=== PATIENT | male | born 1980 | race Caucasian/White ===

== ENCOUNTER 2021-03-22 09:31 | Outpatient (CLI) | payer OTHER, SELFPAY ==
--- NOTE | 2021-03-22 09:37 | XR_ITS ---
WS: [id number] FOOT RIGHT TECHNIQUE: 2 views of the right foot CLINICAL INFORMATION: Rt 4th toe pain COMPARISON: None. FINDINGS: Right fourth metatarsals are normal in appearance. Tiny transverse lucency through the distal phalanx suspicious for tiny nondisplaced fracture. No evidence of callus formation. Correlation with area of pain. No other visualized fractures. XR/XR foot RT 2V [id number] IMPRESSION: Tiny transverse lucency through the fourth distal phalanx suspicious for tiny n ondisplaced fracture. No evidence of callus formation.
== END 2021-03-22 09:32 | disposition home or self-care (01) ==
PROVIDERS: Visit Provider Family Medicine Adult Medicine
DX: M79.674 Pain in right toe(s) (principal)
CPT/HCPCS: 73620

== ENCOUNTER 2021-04-09 11:57 | Outpatient (CLI) | payer OTHER, SELFPAY ==
[2021-04-09 12:40] VITALS: BP 106/57; PULSE 63; RESP 18; TEMP 36.7; O2SAT 94; BMI 25.8
[2021-04-09 14:40] VITALS: BP 90/54; PULSE 60; RESP 16; TEMP 36.8; O2SAT 92
== END 2021-04-09 11:58 | disposition home or self-care (01) ==
LOC: OPS 11:59
PROVIDERS: PCP Family Medicine; Visit Provider Nurse Practitioner Family
DX: U07.1 COVID-19 (principal)
CPT/HCPCS: 96365

== ENCOUNTER 2021-08-28 14:19 | Outpatient (CLI) | payer OTHER, SELFPAY ==
--- NOTE | 2021-08-28 14:25 | USCV_ITS ---
Gerson Zimmer Age: 41 Gender: M : 1980 Exam Date: 08/28/2021 14:49 Ordering Phys: Marky Ellis MD Technologist: Robin Kirkpatrick Exam Location: [facility] [place] Indication: dyspnea post covid BP: 112 / 70 HR: 73 Rhythm: Sinus Technical Quality: Adequate MEASUREMENTS (Male / Female) Normal Values 2D ECHO LV Diastolic Diameter PLAX 3.3 cm 4.2 - 5.9 / 3.9 - 5.3 cm LV Systolic Diameter PLAX 2.1 cm IVS Diastolic Thickness 1.3 cm 0.6 - 1.0 / 0.6 - 0.9 cm IVS Systolic Thickness 1.7 cm LVPW Diastolic Thickness 1.5 cm 0.6 - 1.0 / 0.6 - 0.9 cm LVPW Systolic Thickness 1.6 cm LVOT Diameter 2.0 cm LV Ejection Fraction 2D Teich 66.8 % LV Ejection Fraction MOD 2C 68.9 % LV Ejection Fraction 2C AL 68.8 % LA Diameter 3.1 cm LA Width 3.4 cm LA Height 4.6 cm RA Width 3.4 cm RA Height 4.8 cm Aorta at Sinotubular Diameter 2.5 cm M-MODE Aortic Annulus Diameter 2.8 cm LA Ao Ratio MM 1.1 MV E Point Septal Separation 0.4 cm DOPPLER AV Peak Velocity 146.0 cm/s LVOT Peak Velocity 133.0 cm/s AV Area Cont Eq vti 2.8 cm squared AV Area Cont Eq pk 3.0 cm squared MV Area PHT 4.0 cm squared Mitral E to A Ratio 1.3 MV E' Velocity 66.6 cm/s Mitral E to MV E' Ratio 6.3 Mitral E to LV E' Lateral Ratio 5.2 Mitral E to LV E' Septal Ratio 7.9 TR Peak Velocity 287.3 cm/s TR Peak Gradient 33.0 mmHg TR Mean Velocity 226.8 cm/s TR Mean Gradient 20.8 mmHg TR Velocity Time Integral 71.8 cm Right Atrial Pressure 3.0 mmHg Pulmonary Artery Systolic Pressu 36.0 mmHg RV Acceleration Time 0.1 s RV Ejection Time 0.3 s RV AcT/ET 0.6 FINDINGS Left Ventricle Normal left ventricular size and systolic function, EF 68 %. No regional wall motion abnormalities. Right Ventricle The right ventricle is normal in size and function. Right Atrium The right atrium is normal in size. Left Atrium The left atrium is normal in size. Mitral Valve No gross abnormalities noted.trace mitral valve regurgitation. Aortic Valve No gross abnormalities noted Tricuspid Valve Mild tricuspid valve regurgitation. Pulmonic Valve Pulmonic valve not well visualized. Pericardium Normal pericardium without effusion. Aorta Normal ascending aorta dimension. CONCLUSIONS Normal left ventricular size and systolic function, EF 68 %. No regional wall motion abnormalities. Mild tricuspid valve regurgitation. Trace of mitral valve regurgitation. There is no pericardial effusion. There are no intracardiac masses. No previous study is available for comparison. Dr Mane No MD FACC (Electronically Signed) Final Date: 28 August 2021 18:16 S
== END 2021-08-28 14:20 | disposition home or self-care (01) ==
LOC: RAD 14:21
PROVIDERS: PCP Family Medicine; Visit Provider Family Medicine
DX: R06.00 Dyspnea, unspecified (principal); Z86.16 Personal history of COVID-19; I08.1 Rheumatic disorders of both mitral and tricuspid valves
CPT/HCPCS: 93306

== ENCOUNTER 2022-07-22 09:38 | Outpatient (CLI) | payer OTHER, SELFPAY ==
[2022-07-22 10:33] VITALS: BMI 28.1
--- NOTE | 2022-07-22 11:23 | ECG_ITS ---
[facility] Test Date: 2022-07-22 Pat Name: Gerson Zimmer Department: Room: Gender: Male [employer]: : 1980 Requested By: Marky Grace Order Number: [id number] Clementine MD: Mario Wilkerson M.D. Interpretive Statements NAME OF STUDY: LEXISCAN SESTAMIBI STRESS TEST INDICATION: [Dyspnea on Exertion] Procedure: At the baseline, the blood pressure was 110/69 mmHg with a heart rate of 59 bpm. The electrocardiogram showed sinus bradycardia, normal axis with normal ST and T's. The Lexiscan was infused over a period of 20 seconds. A total of 0.4 mg of Lexiscan was infused. The stress phase was continued for a total of 5 minutes. Heart rate was at the end of stress phase was 90 bpm and a blood pressure of 108/60 mmHg. The EKG at the peak infusion revealed normal sinus rhythm with no significant ST-T wave changes. Sestamibi was injected 20 seconds after the Lexiscan infusion. Blood pressure at the end of recovery phase was 108/63 mmHg with a heart rate of 77 bpm. Conclusion: 1. Normal EKG response to Lexiscan infusion 2. No Lexiscan induced chest pain or cardiac arrhythmia. 3. Normal blood pressure and heart rate response. 4. Sestamibi/sestamibi perfusion scan pending; see separate report. Electronically Signed On 08-03-2022 19:51:54 TIMBER SKIDDER by Mario Wilkerson M.D. [id number]
--- NOTE | 2022-07-22 11:24 | NMCV_ITS ---
NM ceasar perf SPECT r/s* [id number] Gerson Zimmer Age: 42 Gender: M : 1980 Exam Date: 07/22/2022 11:24 Ordering Phys: Marky Ellis MD Technologist: MACKENZIE Tao Exam Location: [facility] Indications: CHEST PAIN STRESS TEST Please see separate stress test report in [facility] for full findings IMAGE PROTOCOL Rest/Stress 1 Lexiscan Day Radiopharmaceutical Dose (mCi) Administration Site Administered by Rest: Tc-99m 10.8 IV MACKENZIE Bob Sestamibi Stress:Tc-99m 32.6 IV MACKENZIE Bob Sestamibi Rest: 22-Jul-2022 60 Discovery 630 Stress: 22-Jul-2022 30 Discovery 630 0.4mg Lexiscan. Images obtained in supine and prone position. SPECT RESULTS Technical Quality: Excellent Raw Data Analysis: Normal Image Corrections: No attenuation or motion correction applied Summed Stress Score: 0 Summed Rest Score: 0 Summed Difference Score: 0 PERFUSION FINDINGS SPECT images demonstrate homogeneous tracer distribution throughout the myocardium. FUNCTIONAL RESULTS (calculated via Gated SPECT) Stress Image LV EF (%): 74 Stress EDV (mL):131 TID: 0.92 Stress ESV (mL):34 FUNCTIONAL FINDINGS: There is normal left ventricular systolic function. IMPRESSIONS 1. Normal myocardial perfusion imaging with no evidence of ischemia 2. LV systolic function is normal Mario Wilkerson MD (Electronically Signed) Final Date: 22 July 2022 13:51 S
[2022-07-22] MEDS: regadenoson 0.4 Mg/5 ml Syringe IVP (12:00)
[2022-07-22 12:29] VITALS: BP 111/65; PULSE 76
== END 2022-07-22 09:39 | disposition home or self-care (01) ==
PROVIDERS: PCP Family Medicine; Visit Provider Family Medicine
DX: R06.09 Other forms of dyspnea (principal); R07.9 Chest pain, unspecified
CPT/HCPCS: 36415; 78452; 93017; 96374; A9500; J2785

== ENCOUNTER → 2023-08-26 13:11 | Outpatient (BNVA) | payer OTHER, SELFPAY | PROVIDERS: PCP Family Medicine; Visit Provider Family Medicine | DX: Z13.6 Encounter for screening for cardiovascular disorders (principal) | CPT/HCPCS: 80061; 82947; 83036 ==

== ENCOUNTER 2024-07-20 05:55 | Day surgery (SDC) | payer OTHER, SELFPAY ==
[2024-07-20 06:10] VITALS: BP 134/78; PULSE 90; RESP 18; TEMP 36.3; O2SAT 98; BMI 29.7
[2024-07-20] MEDS: sodium chloride 0.9% 500 ML 15 ML IV (06:22)
--- NOTE | 2024-07-20 06:56 | P.ANESASSM_ITS ---
Pre-Anesthetic Assessment Height/Weight: Height 1.7 m Weight 86.183 kg Temp Pulse Resp BP Pulse Ox O2 Del Method 97.4 F L 90 18 134/78 98 Room Air 07/20/24 06:10 07/20/24 06:10 07/20/24 06:10 07/20/24 06:10 07/20/24 06:10 07/20/24 06:10 Preop Diagnosis: screening Operation Date: 07/20/24 07:00 Proposed Procedures p Colonoscopy - 89845, Z80.0, G0105(Not Applicable) - Flaco Williamson DO Familial anesthetic complications: none Was Beta Alma taken within 24 hours: Yes Was Clonidine taken within 24 hours: Yes Last intake: Intake Last Liquid Date 07/19/24 Last Liquid Time 20:00 Last Solid Date 07/18/24 Last Solid Time 18:00 Social Alcohol and Tobacco chews pack(s) per day Exam alert, oriented x 3, clear to auscultation bilaterally and regular rate & rhythm Airway Submandibular: within normal limits Cervical ROM: within normal limits Mallampati: Class II Dentition: full History/ROS No significant history except as noted and No significant complaints Pulmonary Exertional Dyspnea CV/HEM None reported None reported Hepatic None reported GI None reported Metabolic None reported Musc/skel None reported Neuropsych None reported Anesthetic Plan ASA status: 2 Anesthesia: MAC Risk of > 500 ml blood loss (7ml/kg in children): No Medications/Allergies Home Medications Medication Instructions Recorded Confirmed Last Taken Type paroxetine HCl 10 mg tablet 10 mg PO DAILY 04/11/24 05/02/24 07/19/24 History Allergies Allergy/AdvReac Type Severity Reaction Status Date / Time [place] Allergy Intermediate ALGY-Hives Verified 05/02/24 12:11 COUNT INCLUDES THE [facility] Anesthesia Medical History (Updated 04/11/24 @ 08:52 by Flaco Williamson DO) Family history of colon cancer Pain and swelling of toe of right foot Toe fracture, right Family History Grandfather Colon cancer Social History Smoking and tobacco/nicotine status: never used tobacco/nicotine Data Anesthesia Cardiac Studies: Echocardiogram 08/28/21 Sestamibi Stress Test (Cardiology) 07/22 Holter Monitor 07/08/22
--- NOTE | 2024-07-20 06:59 | PM.HP ---
Providers/Chief Complaint Primary Care Provider: Marky Ellis MD Chief Complaint: Z80.0 History of Present Illness Gerson Zimmer is a 44 year old male Review of Systems General: Reports: 10 or more systems reviewed and unremarkable except in HPI and below Medications/Allergies Home Medications Medication Instructions Recorded Confirmed Last Taken Type paroxetine HCl 10 mg tablet 10 mg PO DAILY 04/11/24 05/02/24 07/19/24 History Allergies Allergy/AdvReac Type Severity Reaction Status Date / Time [place] Allergy Intermediate ALGY-Hives Verified 05/02/24 12:11 PFSH Acute PFSH: Medical History (Updated 04/11/24 @ 08:52 by Flaco Williamson DO) Family history of colon cancer Pain and swelling of toe of right foot Toe fracture, right Family History Grandfather Colon cancer Social History Smoking and tobacco/nicotine status: never used tobacco/nicotine Vitals/I&O/Wt Last Vital Signs Temp 97.4 F L 07/20/24 06:10 Pulse 90 07/20/24 06:10 Resp 18 07/20/24 06:10 BP 134/78 07/20/24 06:10 Pulse Ox 98 07/20/24 06:10 O2 Del Method Room Air 07/20/24 06:10 Weight last 48 hrs Weight 190 lb A&P Assessment and plan (1) Family history of colon cancer: Plan cOLONOSCOPY Attestations Medical Necessity Statement*: home Coding Level of Care Code Acute Code for Chg Fwd Diagnoses Family history of colon cancer Z80.0
[2024-07-20 07:27] VITALS: BP 99/70; PULSE 77; RESP 16; TEMP 36.5; O2SAT 98
[2024-07-20 07:34] VITALS: BP 107/77; PULSE 66; RESP 18; O2SAT 98
--- NOTE | 2024-07-20 07:54 | ANE.PACU2 ---
Inpatient post-anesthesia follow up: Airway intact: Yes Vital signs: Temperature 97.7 F Pulse Rate 66 Respiratory Rate 18 Blood Pressure 107/77 Pulse Oximetry 98 Oxygen Delivery Me thod Room Air Oxygen Flow Rate Fraction of Inspir ed Oxygen Hydration adequate: Yes Nausea and vomiting: No Pain level: 1 Mental status: Baseline
== END 2024-07-20 07:54 | disposition home or self-care (01) ==
PROVIDERS: PCP Family Medicine; Visit Provider Surgery
PROC: 0DJD8ZZ Inspection of Lower Intestinal Tract, Via Natural or Artificial Opening Endoscopic (ICD-10-PCS; CPT 45378; principal; 2024-07-20 07:00)
DX: Z12.11 Encounter for screening for malignant neoplasm of colon (principal); Z80.0 Family history of malignant neoplasm of digestive organs; F17.220 Nicotine dependence, chewing tobacco, uncomplicated
CPT/HCPCS: 45378; J2704; J7040

== ENCOUNTER → 2024-09-15 14:43 | Outpatient (BNVA) | payer OTHER, SELFPAY | PROVIDERS: PCP Family Medicine; Visit Provider Family Medicine | DX: E78.5 Hyperlipidemia, unspecified (principal) | CPT/HCPCS: 80053; 80061; 85025 ==

== ENCOUNTER → 2025-05-17 07:32 | Outpatient (BNVA) | payer OTHER, SELFPAY | PROVIDERS: PCP Family Medicine; Visit Provider Family Medicine | DX: E78.5 Hyperlipidemia, unspecified (principal); R53.83 Other fatigue | CPT/HCPCS: 80061; 84403 ==